=== PATIENT | male | born 1960 | race Caucasian/White ===

== ENCOUNTER 2017-03-07 16:54 | Emergency (ER) | payer OTHER ==
[~2017-03-07] VITALS: Ht 177.8 cm; Wt 89.2 kg
[2017-03-07 19:12] VITALS: BP 124/71
== END 2017-03-07 19:16 | disposition home or self-care (01) ==
LOC: EME 16:54
DX: F10.10 Alcohol abuse, uncomplicated (principal); Z59.0 Homelessness; F31.9 Bipolar disorder, unspecified; F32.9 Major depressive disorder, single episode, unspecified; F20.9 Schizophrenia, unspecified
CPT/HCPCS: 99281; 99284

== ENCOUNTER 2017-05-05 07:04 | Emergency (ER) | payer OTHER ==
[~2017-05-05] VITALS: Ht 175.3 cm; Wt 85.2 kg
[2017-05-05] MEDS ORDERED: AUGMENTIN875 MG PO (08:18)
[2017-05-05 08:20] VITALS: BP 140/74
== END 2017-05-05 08:34 | disposition home or self-care (01) ==
LOC: EME 07:04
DX: S01.511A Laceration without foreign body of lip, initial encounter (principal); Z23 Encounter for immunization; Y04.0XXA Assault by unarmed brawl or fight, initial encounter
CPT/HCPCS: 99281; 99283

== ENCOUNTER 2017-05-14 20:44 | Emergency (ER) | payer OTHER ==
[~2017-05-14] VITALS: Ht 177.8 cm; Wt 81.6 kg
[~2017-05-14 20:44] MED LIST: AUGMENTIN875 MG PO
[2017-05-14 22:08] LABS: BASOPHIL COUNT 0.1 K/uL (0-0.1); EOSINOPHIL (%) 3.6 % (0-5); EOSINOPHIL COUNT 0.3 K/uL (0-0.3); HEMATOCRIT 38.8 % (38.0-50.0); IMMATURE GRANULOCYTE (%) 0.3 % (0.0-0.7); INSTRUMENT ABS NEUTROPHIL CT 4.4 K/uL; LYMPHOCYTE COUNT 2.2 K/uL (1.0-2.8); MCH 31.6 PG (29.0-34.0); MCHC 34.3 G/DL (30.0-36.0); MCV 92.2 FL (86-99); MEAN PLAT.VOLUME 8.3 uM^3 (9.0-12.4); MONOCYTE (%) 7.7 % (3-12); MONOCYTE COUNT 0.6 K/uL (0-0.8); NEUTROPHIL (%) 57.9 % (45-76); NEUTROPHIL COUNT 4.4 K/uL (1.8-6.4); PLATELET COUNT 273 K/uL (156-360); RBC DIS.WIDTH-CV 13.4 % (11.8-14.6); RBC DIS.WIDTH-SD 45.7 % (39-53); RED BLOOD COUNT 4.21 M/uL (4.00-5.50); WHITE BLOOD COUNT 7.6 K/uL (4.1-10.2)
[2017-05-14 22:19] LABS: CHLORIDE 107 mEq/L (99-109); POTASSIUM 3.7 mEq/L (3.7-5.4); SODIUM 144 mEq/L (136-147)
[2017-05-14 22:21] LABS: GLUCOSE 88 mg/dL (70-99)
[2017-05-14 22:22] LABS: ANION GAP 10 MEQ/L (2-14)
[2017-05-14 22:24] LABS: GFR ESTIMATE (CALCULATED) > 59 mL/min/
[2017-05-14 22:25] LABS: UREA NITROGEN (BUN) 12 mg/dL (9-23)
[2017-05-15] MEDS ORDERED: LIBRIUM25 MG PO (00:27)
[2017-05-15 00:36] VITALS: BP 123/79
== END 2017-05-15 00:42 | disposition home or self-care (01) ==
LOC: EME 20:44
PROVIDERS: Emergency Medicine
DX: F10.129 Alcohol abuse with intoxication, unspecified (principal); S00.83XA Contusion of other part of head, initial encounter; Y04.0XXA Assault by unarmed brawl or fight, initial encounter
CPT/HCPCS: 70110; 80048; 85025; 99281; 99284

== ENCOUNTER 2017-08-25 16:08 | Emergency (ER) | payer OTHER ==
[~2017-08-25] VITALS: Ht 172.7 cm; Wt 83.1 kg
[~2017-08-25 16:08] MED LIST changes: +LIBRIUM25 MG PO
[2017-08-25 20:35] VITALS: BP 105/64
== END 2017-08-25 20:36 | disposition home or self-care (01) ==
LOC: EME 16:08
DX: F10.129 Alcohol abuse with intoxication, unspecified (principal)
CPT/HCPCS: 99281; 99283